=== PATIENT | female | born 1995 | race Caucasian/White ===

== ENCOUNTER 2018-10-29 16:27 | Outpatient (CLI) | payer OTHER | END 2018-10-29 23:59 | disposition home or self-care (01) | LOC: LAB.R 16:27 | PROVIDERS: ATTEND Obstetrics & Gynecology | DX: N92.0 Excessive and frequent menstruation with regular cycle (principal) | CPT/HCPCS: 87491; 87591 ==

== ENCOUNTER 2019-05-07 09:42 | Emergency (ER) | payer OTHER ==
--- NOTE | 2019-05-07 10:04 | ED Physician Documentation ---
History of Present Illness - Stated complaint Stated Complaint: CHEST PAIN - Chief complaint Chief Complaint: Cardiac - History obtained from History obtained from: Patient - Additonal information Additional information: Patient is a previously healthy 24-year-old female presenting with several months of chest discomfort. [place] well as by primary care physician and directed to the ED. Patient reports intermittent chest discomfort substernally which she describes as if she has had a piece of bread stuck.Patient denies other GERD-like changes or symptoms, as well as any associated changes such as shortness of breath, productive cough, fever, nausea, vomiting, abdominal pain, urinary changes, or stool changes.However, patient does endorse near syncopal episodes that occur multiple times daily. No other improving or worsening factors noted. Review of Systems Constitutional: denies: Fever Cardiac: reports: Chest pain / pressure Respiratory: denies: Dyspnea, Cough GI: denies: Abdominal Pain, Nausea, Vomiting, Diarrhea : denies: Dysuria PD PAST MEDICAL HISTORY - Past Medical History Past Medical History: No - Past Surgical History Past Surgical History: No - Allergies Allergies/Adverse Reactions: Allergies Allergy/AdvReac Type Severity Reaction Status Date / Time No Known Drug Allergies Allergy Verified 05/07/19 09:49 PD ED PE NORMAL - Vitals Vital signs reviewed: Yes - General General: Alert and oriented X 3, No acute distress, Well developed/nourished - HEENT HEENT: Atraumatic, Moist mucous membranes - Neck Neck: Supple, no meningeal sign - Cardiac Cardiac: RRR, No murmur - Respiratory Respiratory: No respiratory distress, Clear bilaterally - Abdomen Abdomen: Normal bowel sounds, Soft, Non tender, Non distended - Derm Derm: Normal color, Warm and dry, No rash - Extremities Extremities: No deformity, No tenderness to palpate, No edema - Neuro Neuro: Alert and oriented X 3, No motor deficit, No sensory deficit - Psych Psych: Normal mood, Normal affect Results - Vitals Vitals: Vital Signs - 24 hr 05/07/19 05/07/19 09:46 10:22 Temperature 36.8 C Heart Rate 62 59 L Respiratory 18 18 Rate Blood Pressure 137/72 H 126/78 O2 Saturation 98 100 Oxygen O2 Source Room air - EKG (time done) 1004 Rate: Rate (enter#) (53) Intervals: RBBB (Reports as chronic) - Labs Labs: Laboratory Tests 05/07/19 05/07/19 05/07/19 10:40 10:40 10:40 WBC 4.1 L RBC 4.69 Hgb 12.9 Hct 39.9 MCV 85.1 MCH 27.5 MCHC 32.3 RDW 14.1 Plt Count 212 MPV 9.7 Neut # (Auto) 2.1 Lymph # (Auto) 1.4 L Nobles # (Auto) 0.5 Eos # (Auto) 0.1 Baso # (Auto) 0.0 Absolute Nucleated RBC 0.00 Nucleated RBC % 0.0 Sodium 138 Potassium 3.5 Chloride 101 Carbon Dioxide 25 Anion Gap 12.0 BUN 16 Creatinine 0.7 Estimated GFR (MDRD) 102 Glucose 94 Calcium 9.3 Total Bilirubin 0.6 AST 21 ALT 17 Alkaline Phosphatase 36 L Troponin I < 0.04 Troponin I High Sens 3.3 Total Protein 7.5 Albumin 4.3 Globulin 3.2 Albumin/Globulin Ratio 1.3 Lipase 25 TSH 05/07/19 10:40 WBC RBC Hgb Hct MCV MCH MCHC RDW Plt Count MPV Neut # (Auto) Lymph # (Auto) Nobles # (Auto) Eos # (Auto) Baso # (Auto) Absolute Nucleated RBC Nucleated RBC % Sodium Potassium Chloride Carbon Dioxide Anion Gap BUN Creatinine Estimated GFR (MDRD) Glucose Calcium Total Bilirubin AST ALT Alkaline Phosphatase Troponin I Troponin I High Sens Total Protein Albumin Globulin Albumin/Globulin Ratio Lipase TSH 3.99 PD MEDICAL DECISION MAKING - ED course Complexity details: re-evaluated patient, considered differential, d/w patient ED course: Patient presenting with several months of intermittent chest discomfort that is likely esophageal spasm and have lower suspicion for GERD, esophagitis, ACS, AK, unstable angina, aneurysm, dissection, PE, pneumonia, considered. Patient stated that she is coming to the ED as she is having trouble establishing primary care physician follow-up. Primary care physician recommended having ED physician evaluation and by doing so this could facilitate an earlier primary care follow-up appointment. Physical exam is extremely benign. EKG found evidence of right bundle branch block which patient reports is known. Cardiac enzymes within normal limits. Remainder of screening lab work including thyroid testing is rather unremarkable. Chest x-ray obtained which not find evidence of pneumonia or other acute pathology. At this time, do not feel patient requires other emergent or invasive testing, consult, hospitalization, but recommended primary care follow-up and did discuss possibility referral to cardiology and/or gastroenterology. Patient voiced understanding and is comfortable with discharge plan.
[2019-05-07 10:45] LABS: EOSINOPHILS # (AUTO) 0.1 10^3/uL (0.0-0.7); EOSINOPHILS % (AUTO) 1.7 %; HGB - HEMOGLOBIN 12.9 g/dL (12.0-16.0); LYMPHOCYTES # (AUTO) 1.4 10^3/uL (1.5-3.5); LYMPHOCYTES % (AUTO) 34.1 %; MEAN CORPUSCULAR HEMOGLOBIN 27.5 pg (27.0-31.0); MEAN CORPUSCULAR HGB CONC 32.3 g/dL (32.0-36.0); MEAN CORPUSCULAR VOLUME 85.1 fL (81.0-99.0); MEAN PLATELET VOLUME 9.7 fL (7.9-10.8); MONOCYTES # (AUTO) 0.5 10^3/uL (0.0-1.0); MONOCYTES % (AUTO) 11.6 %; NEUTROPHILS # (AUTO) 2.1 10^3/uL (1.5-6.6); NEUTROPHILS % (AUTO) 51.4 %; PLT - PLATELET COUNT 212 10^3/uL (130-450); RED BLOOD COUNT 4.69 10^6/uL (4.20-5.40); RED CELL DISTRIBUTION WIDTH 14.1 % (12.0-15.0); WHITE BLOOD COUNT 4.1 x10^3/uL (4.8-10.8)
[2019-05-07 11:01] LABS: BILIRUBIN,TOTAL 0.6 mg/dL (0.2-1.0); CALCIUM 9.3 mg/dL (8.5-10.3); CREATININE 0.7 mg/dL (0.4-1.0)
[2019-05-07 11:02] LABS: ALBUMIN 4.3 g/dL (3.2-5.5); ALBUMIN/GLOBULIN RATIO 1.3 (1.0-2.2); TOTAL PROTEIN 7.5 g/dL (6.7-8.2)
--- NOTE | 2019-05-07 11:05 | XRAY Report ---
Reason: cough Procedure Date: 05/07/2019 Accession Number: [id number] / [id number] Procedure: XR - Chest 2 View X-Ray CPT Code: 81103 FULL RESULT: EXAM: CHEST RADIOGRAPHY EXAM DATE: 05/07/2019 10:48 AM. CLINICAL HISTORY: Cough. Several months of substernal chest discomfort which feels like she has a piece of bread stuck. COMPARISON: None. TECHNIQUE: 2 views. FINDINGS: Lungs/Pleura: No focal opacities evident. No pleural effusion. No pneumothorax. Normal volumes. Mediastinum: Heart and mediastinal contours are unremarkable. Other: None. IMPRESSION: No acute cardiopulmonary abnormality. RADIA
[2019-05-07 11:21] LABS: TROPONIN I < 0.04 ng/mL (<0.49)
[2019-05-07 11:44] LABS: HCG UR QUAL NEGATIVE
[2019-05-07 12:03] VITALS: BP 120/78
== END 2019-05-07 12:06 | disposition home or self-care (01) ==
LOC: ED 09:42
DX: R07.89 Other chest pain (principal); I45.10 Unspecified right bundle-branch block
CPT/HCPCS: 36415; 71046; 80053; 81025; 83690; 84443; 84484; 85025; 93005; 99283

== ENCOUNTER 2020-03-18 21:04 | Emergency (ER) | payer OTHER, BC ==
[2020-03-18 21:15] VITALS: BP 138/89
--- NOTE | 2020-03-18 21:55 | ED Physician Documentation ---
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 She is unsure of her tetanus status.) Review of Systems Ten Systems: 10 systems reviewed and negative Constitutional: reports: Reviewed and negative Eyes: reports: Reviewed and negative Ears: reports: Reviewed and negative Nose: reports: Reviewed and negative Throat: reports: Reviewed and negative Cardiac: reports: Reviewed and negative Respiratory: reports: Reviewed and negative GI: reports: Reviewed and negative : reports: Reviewed and negative Skin: reports: Abrasion (s) Musculoskeletal: reports: Reviewed and negative Neurologic: reports: Reviewed and negative Psychiatric: reports: Reviewed and negative Endocrine: reports: Reviewed and negative Immunocompromised: reports: Reviewed and negative PD PAST MEDICAL HISTORY - Past Medical History Past Medical History: Yes Cardiovascular: Other Respiratory: None Neuro: None Endocrine/Autoimmune: None GI: None CVIR TECH: None : None HEENT: None Psych: None Musculoskeletal: None Derm: None - Past Surgical History Past Surgical History: No - Present Medications Home Medications: Ambulatory Orders Medication Instructions Recorded Confirmed No Known Home Medications 03/18/20 03/18/20 - Allergies Allergies/Adverse Reactions: Allergies Allergy/AdvReac Type Severity Reaction Status Date / Time No Known Drug Allergies Allergy Verified 03/18/20 21:08 - Social History Does the pt smoke?: Yes Smoking Status: Current every day smoker Does the pt drink ETOH?: No Does the pt have substance abuse?: No - POLST Patient has POLST: No PD ED PE NORMAL - Vitals Vital signs reviewed: Yes - General General: Alert and oriented X 3, No acute distress, Well developed/nourished - HEENT HEENT: PERRL - Neck Neck: Supple, no meningeal sign - Cardiac Cardiac: RRR, No murmur - Respiratory Respiratory: Clear bilaterally - Abdomen Abdomen: Normal bowel sounds, Soft, Non tender, Non distended - Derm Derm: Warm and dry, Other (Superficial abrasions to the right forearm and superficial abrasions to the dorsum of the left hand) - Extremities Extremities: No deformity, Other (Superficial abrasion small puncture wound to the right forearm and superficial abrasions to the dorsal aspect of the left hand radian, median, ulnar motor and sensory exam are intact of bilateral upper extremities compartments are all soft and neurovascular intact in bilateral upper extremities.) - Neuro Neuro: Alert and oriented X 3 - Psych Psych: Normal mood, Normal affect Results - Vitals Vitals: Vital Signs - 24 hr 03/18/20 03/18/20 03/18/20 21:11 21:34 22:00 Temperature 37.0 C Heart Rate 66 Respiratory 18 16 16 Rate Blood Pressure 138/89 H O2 Saturation 96 03/18/20 23:01 Temperature Heart Rate Respiratory 16 Rate Blood Pressure O2 Saturation Oxygen O2 Source Room air PD MEDICAL DECISION MAKING - ED course Complexity details: considered differential (Dog bite given the fact that this dog is unknown patient will be given rabies immunoglobulin as well as rabies vaccine first dose today and then on days 3 7 and 14. L&I paperwork completed as well.) Departure - Departure Disposition: 01 Home, Self Care Clinical Impression: Dog bite Qualifiers: Encounter type: initial encounter Qualified Code(s): W54.0XXA - Bitten by dog, initial encounter Condition: Stable Instructions: ED Bite Animal General Comments: Follow up in the ED or employee health on day 3, 7, 14 for rabies vaccine. Discharge Date/Time: 03/18/20 23:05
[2020-03-18] MEDS ORDERED: RABIES IMMUNE GLOBULIN 300 UNITS/2 ML IM STA (22:09)
[2020-03-18] MEDS ORDERED: TETANUS/DIPHTHERIA/PERTUSSIS 0.5 ML SYRINGE IM ONE (22:09)
[2020-03-18] MEDS ORDERED: RABIES VACCINE 2.5 UNIT SYRINGE IM ONE (22:10)
== END 2020-03-18 23:05 | disposition home or self-care (01) ==
LOC: EDUNIT# → ED 21:04
DX: S51.851A Open bite of right forearm, initial encounter (principal); S60.572A Other superficial bite of hand of left hand, initial encounter; W54.0XXA Bitten by dog, initial encounter; Y99.0 Civilian activity done for income or pay; Z20.3 Contact with and (suspected) exposure to rabies; Z29.14 Encounter for prophylactic rabies immune globulin; Z23 Encounter for immunization; F17.200 Nicotine dependence, unspecified, uncomplicated
CPT/HCPCS: 90471; 90472; 96372; 99283

== ENCOUNTER 2020-09-21 11:14 | Emergency (ER) | payer BC, OTHER ==
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
--- NOTE | 2020-09-21 12:01 | XRAY Report ---
PROCEDURE: Ribs w/PA Chest RT INDICATIONS: R rib/chest pain TECHNIQUE: 2 views of the right ribs were acquired, along with a single view chest. COMPARISON: Chest radiograph dated 05/07 19 FINDINGS: Surgical changes and devices: None. Bones and chest wall: No fractures or dislocations. No suspicious bony lesions. Overlying soft tis sues appear unremarkable. Lungs and pleura: No pleural effusions or pneumothorax. Lungs appear clear. Mediastinum: Mediastinal contours appear normal. Heart size is normal. IMPRESSION: No gross acute displaced right rib fracture. No acute cardiopulmonary pathology. Reviewed by: Collin Cid MD on 09/21/2020 11:00 AM [facility] Approved by: Collin Cid MD on 09/21/2020 11:00 AM [facility] Station ID: [id number]
[2020-09-21 13:04] VITALS: BP 130/78
== END 2020-09-21 12:35 | disposition home or self-care (01) ==
LOC: ED 11:14
DX: R07.81 Pleurodynia (principal); F17.200 Nicotine dependence, unspecified, uncomplicated
CPT/HCPCS: 99283; 99284

== ENCOUNTER 2021-12-22 18:19 | Outpatient (CLI) | payer BC ==
[2021-12-22 19:59] LABS: THYROID STIMULATING HORMONE 3.54 uIU/mL (0.34-5.60)
[2021-12-22 20:05] LABS: PROLACTIN 17.96 ng/mL
[2021-12-22 21:04] LABS: ESTIMATED AVERAGE GLUCOSE 114 mg/dL (70-100); HEMOGLOBIN A1c% 5.6 % (4.27-6.07)
--- NOTE | 2021-12-23 08:24 | Ultrasound Report ---
PROCEDURE: Pelvic w/Transvaginal INDICATIONS: Irregular menses TECHNIQUE: Real-time scanning was performed of the pelvic organs, with image documentation. Additional endovagi nal scanning was necessary due to incomplete visualization of the adnexal and endometrial structures by transabdominal scanning. COMPARISON: None. FINDINGS: The uterine body measures 3.7 x 6.9 x 10.9 cm. Heterogenous uterine echotexture without discrete mass . The endometrial stripe complex measures 7 mm in double layer thickness. Right ovary measures 5.4 x 2.2 x 2.7 cm. The left ovary measures 2.2 x 2.7 x 4.6 cm. There are severa l follicles within the bilateral ovaries, most subcentimeter but a few measuring up to 2 cm. Most of the follicles are located at the periphery of the ovary. Normal uterine blood flow demonstrated. IMPRESSION: Numerous bilateral ovarian follicles, most of which are subcentimeter and at the periphery of the ova obinna. Findings may represent PCOS in the appropriate clinical setting. Reviewed by: Sunil Haney MD on 12/23/2021 8:22 AM PST Approved by: Sunil Haney MD on 12/23/2021 8:22 AM PST Station ID: [id number]
== END 2021-12-22 18:20 | disposition home or self-care (01) ==
LOC: DI 18:19 → LAB 18:20
PROVIDERS: ATTEND Obstetrics & Gynecology
DX: N92.6 Irregular menstruation, unspecified (principal); N83.01 Follicular cyst of right ovary; N83.02 Follicular cyst of left ovary
CPT/HCPCS: 36415; 81599; 83036; 83520; 84144; 84146; 84443; 84702

== ENCOUNTER 2022-01-27 08:00 | Outpatient (CLI) | payer BC ==
[2022-01-27 17:01] LABS: BILIRUBIN,URINE NEGATIVE (NEGATIVE); GLUCOSE, URINE (UA) NEGATIVE (NEGATIVE); KETONES,URINE (UA) NEGATIVE (NEGATIVE); LEUKOCYTE ESTERASE, URINE NEGATIVE (NEGATIVE); NITRITE,URINE NEGATIVE (NEGATIVE); OCCULT BLOOD,URINE NEGATIVE (NEGATIVE); PROTEIN,URINE NEGATIVE (NEGATIVE); UROBILINOGEN,URINE 0.2 (NORMAL) E.U./dL (NORMAL)
[2022-01-27 17:07] LABS: CLARITY,URINE CLEAR (CLEAR)
[2022-01-27 17:20] LABS: BACTERIA,URINE None Seen /HPF (None Seen); RBC,URINE 0-5 /HPF (0-5); SQUAMOUS EPITHELIAL CELL,UR NONE SEEN (<= Few); WBC,URINE 0-3 /HPF (0-5)
== END 2022-01-27 23:59 | disposition home or self-care (01) ==
LOC: LAB 08:00
PROVIDERS: ATTEND Obstetrics & Gynecology
DX: Z32.01 Encounter for pregnancy test, result positive (principal)
CPT/HCPCS: 81001; 87086

== ENCOUNTER 2022-01-31 14:12 | Outpatient (CLI) | payer BC ==
--- NOTE | 2022-01-31 16:17 | Ultrasound Report ---
PROCEDURE: OB First Trimester INDICATIONS: POSITIVE TEST OUTSIDE/PRIOR DATING DATA: Last menstrual period (LMP): 12/15/2021. LMP-based estimated date of delivery (MARTINA): 09/21/2022. First dating scan (date and location): 01/31/2022. Estimated date of delivery (MARTINA) from first dating scan: 09/21/2022. TECHNIQUE: Real-time scanning was performed of the fetus and maternal pelvic organs, with image documentation. COMPARISON: None. FINDINGS: Mean gestational sac diameter 2.5 cm. [place]-rump length 8 mm. heart rate 122 bpm. Ovaries luanne l. No pelvic fluid collection. IMPRESSION: Single live intrauterine gestation, estimated age 6 weeks 5 days. Reviewed by: Sunil Haney MD on 01/31/2022 4:16 PM PDT Approved by: Sunil Haney MD on 01/31/2022 4:16 PM PDT Station ID: [id number]
== END 2022-01-31 14:13 | disposition home or self-care (01) ==
LOC: DI 14:12
PROVIDERS: ATTEND Obstetrics & Gynecology
DX: Z32.01 Encounter for pregnancy test, result positive (principal)

== ENCOUNTER 2022-02-02 17:51 | Outpatient (CLI) | payer BC ==
[2022-02-02 18:55] LABS: BASOPHILS % (AUTO) 0.3 %; EOSINOPHILS # (AUTO) 0.1 10^3/uL (0.0-0.7); HCT - HEMATOCRIT 33.9 % (37.0-47.0); HGB - HEMOGLOBIN 11.3 g/dL (12.0-16.0); LYMPHOCYTES # (AUTO) 2.6 10^3/uL (1.5-3.5); LYMPHOCYTES % (AUTO) 29.9 %; MEAN CORPUSCULAR HEMOGLOBIN 28.5 pg (27.0-31.0); MEAN CORPUSCULAR HGB CONC 33.3 g/dL (32.0-36.0); MEAN CORPUSCULAR VOLUME 85.6 fL (81.0-99.0); MEAN PLATELET VOLUME 10.5 fL (7.9-10.8); MONOCYTES # (AUTO) 0.8 10^3/uL (0.0-1.0); NEUTROPHILS # (AUTO) 5.2 10^3/uL (1.5-6.6); NEUTROPHILS % (AUTO) 59.6 %; PLT - PLATELET COUNT 198 10^3/uL (130-450); RED BLOOD COUNT 3.96 10^6/uL (4.20-5.40); RED CELL DISTRIBUTION WIDTH 13.1 % (12.0-15.0); WHITE BLOOD COUNT 8.7 x10^3/uL (4.8-10.8)
[2022-02-03 09:56] LABS: HEPATITIS C ANTIBODY NON-REACTIVE (NON-REACTIVE)
[2022-02-03 11:35] LABS: HEPATITIS B SURFACE ANTIGEN NON-REACTIVE (NON-REACTIVE)
[2022-02-03 12:56] LABS: HIV AG/AB 4TH GEN NON-REACTIVE (NON-REACTIVE)
== END 2022-02-02 17:52 | disposition home or self-care (01) ==
LOC: LAB 17:51
PROVIDERS: ATTEND Obstetrics & Gynecology
DX: Z36.89 Encounter for other specified antenatal screening (principal)
CPT/HCPCS: 36415; 81599; 85025; 86592; 86762; 86787; 86803; 86850; 86900; 86901; 87340; 87389

== ENCOUNTER 2022-02-03 08:00 | Outpatient (CLI) | payer BC ==
[2022-02-03 21:19] LABS: CHLAMYDIA TRACHOMATIS DNA NEGATIVE (NEGATIVE); NEISSERIA GONORRHOEAE DNA NEGATIVE (NEGATIVE); TRICHOMONAS VAGINALIS DNA NEGATIVE (NEGATIVE)
== END 2022-02-03 23:59 | disposition home or self-care (01) ==
LOC: LAB 08:00
PROVIDERS: ATTEND Obstetrics & Gynecology
DX: Z34.90 Encounter for supervision of normal pregnancy, unspecified, unspecified trimester (principal)
CPT/HCPCS: 87491; 87591; 87661

== ENCOUNTER 2022-04-18 08:00 | Outpatient (CLI) | payer BC ==
[2022-04-18 22:28] LABS: BACTERIAL VAGINOSIS DNA NEGATIVE (NEGATIVE); CANDIDA GLABRATA DNA NEGATIVE (NEGATIVE); CANDIDA GROUP DNA POSITIVE (NEGATIVE); CANDIDA KRUSEI DNA NEGATIVE (NEGATIVE); TRICHOMONAS VAGINALIS DNA NEGATIVE (NEGATIVE)
== END 2022-04-18 23:59 | disposition home or self-care (01) ==
LOC: LAB 08:00
PROVIDERS: ATTEND Nurse Practitioner
DX: N89.8 Other specified noninflammatory disorders of vagina (principal)
CPT/HCPCS: 81514

== ENCOUNTER 2022-05-03 13:22 | Outpatient (CLI) | payer BC ==
--- NOTE | 2022-05-03 16:56 | Ultrasound Report ---
PROCEDURE: OB Detailed Eval INDICATIONS: SUPERVISION OF OUTSIDE/PRIOR DATING DATA: Last menstrual period (LMP): 12/15/2021. LMP-based estimated date of delivery (MARTINA): 09/21/2022. First dating scan (date and location): 01/31/2022. Estimated date of delivery (MARTINA) from first dating scan: 09/21/2022. TECHNIQUE: Real-time scanning was performed of the fetus, with image documentation and biometric measurements. Endovaginal scanning: Not performed COMPARISON: 01/31/2022 FINDINGS: General: A single living intrauterine gestation is present. Presentation: Cephalic Placenta: Placental position is posterior, without previa. Amniotic fluid index: 14.6 cm, normal for gestational age. heart rate: 140 beats per minute. Maternal cervical canal: 5.1 cm long; normal length is 2.5 cm or more. biometrics: Biparietal diameter: 4.7 cm Head circumference: 17.2 cm Abdominal circumference: 14.5 cm Femur length: 3.2 cm Composite gestational age from present scan: 20 weeks and 0 days Estimated GA by initial ultrasound is 19 weeks and 6 days Estimated weight and percentile: 322 g, 50th percentile Measurement variability in biometric dating: +/- 10 days from 12-20 weeks gestation, +/- 2 weeks from 20-30 weeks gestation, +/- 3 weeks at 30 weeks gestation or later. Anatomic survey: Neuro: Ventricles are normal at less than 10 mm. Cisterna magna is normal at 3-11 mm. Cerebellum i s normal in size and morphology. Nuchal skin fold: Normal at less than 6 mm between 14 and 20 weeks gestational age. Face: Nose and lips, facial profile are normal. Spine: No evidence for spina bifida. Heart LVOT not well seen. RVOT is normal. Four-chamber view is within normal limits. Diaphragm: Diaphragm is intact. Stomach: Left-sided stomach is present. Kidneys: No hydronephrosis. The left kidney appears absent. Cord: Two-vessel cord is seen. Bladder: Normal in size. Extremities: All 4 extremities are visualized. IMPRESSION: Intrauterine at 19 weeks and 6 days based on initial ultrasound, with concordant biom etry on today's study. EFW is at the 50th percentile. The left kidney appears absent. There is a two-vessel cord. LVOT is not well seen. Depending on the m aternal risk factors and laboratory testing, consider referral for follow-up detailed anatomic survey and maternal medicine consultation. Reviewed by: Chacorta Canales MD on 05/03/2022 4:54 PM PDT Approved by: Chacorta Canales MD on 05/03/2022 4:54 PM PDT Station ID: [id number]
== END 2022-05-03 13:23 | disposition home or self-care (01) ==
LOC: DI 13:22
PROVIDERS: ATTEND Obstetrics & Gynecology
DX: O09.91 Supervision of high risk pregnancy, unspecified, first trimester (principal); Z36.89 Encounter for other specified antenatal screening; Z3A.19 19 weeks gestation of pregnancy